=== PATIENT | male | born 1975 | race Caucasian/White ===

== ENCOUNTER → 2017-05-01 | Outpatient (CLI) | payer OTHER | END | disposition home or self-care (01) | LOC: C.LAB 23:07 | DX: Z02.83 Encounter for blood-alcohol and blood-drug test (principal) ==

== ENCOUNTER 2024-11-07 21:49 | Inpatient (IN) ==
--- NOTE | 2024-11-07 22:32 | Emergency Department Note ---
Impression & Plan Diabetic ketoacidosis, Leukocytosis, Acute hypotension, SUSANA (acute kidney injury), Acute hypokalemia, Elevated lactic acid level ED Provider Note HISTORY OF PRESENT ILLNESS: Patient is a 49-year-old male presenting with hyperglycemia. Patient reports that he had laboratory work done recently through his primary care provider and was called about 1 hour prior to arrival in the emergency department stating that his blood sugar was high and his sodium was low. He denies any history of diabetes. He states that he has been drinking quite heavily 4 days a week for the last few weeks. He states that he drinks about three fourths of a handle of vodka when he does drink. He states that he drank quite heavily this past weekend. He states that 3 days ago he had multiple episodes of vomiting and 2 days ago he had profuse diarrhea. He states he was feeling well yesterday and able to tolerate oral intake and was trying to stay hydrated. He denies any polyuria. Denies any fevers. He has a history of hypertension and was recently put on lisinopril. He denies any chest pain or shortness of breath. He reports that today he is felt lightheaded with standing. ROS: as above PHYSICAL EXAM: Constitutional: Patient appears in no acute distress. HENT: Head: Normocephalic and atraumatic. Eyes: EOMI, PERRL Mouth/Throat: Mucous membranes moist. Neck: Trachea midline. Neck supple. Cardiovascular: Tachycardic with regular rhythm. No murmurs, rubs or gallops. Intact distal pulses. Pulmonary/Chest: No respiratory distress. Breath sounds clear and equal bilaterally. No wheezes or rales. Abdominal: Abdomen soft, no tenderness, rebound or guarding. Musculoskeletal: No edema, tenderness or deformity noted. Skin: Warm and dry. No rash, erythema, pallor or cyanosis Psychiatric: Appropriate mood and affect for situation. Neurological: Alert and keenly responsive. CN II-XII grossly intact, moving all extremities equally and fully. MDM: - Vitals signs showed hypotension and tachycardia. - History obtained via patient. History as above. - Chronic conditions affecting care: Hypertension - Differential diagnoses include, but are not limited to: DKA; electrolyte abnormality; dysrhythmia; sepsis; UTI; pneumonia; viral syndrome - Order placed for continuous cardiac monitoring. At this time, monitor showed rate of 102 bpm with normal sinus rhythm, per my interpretation. - External medical records reviewed. Patient's lab work from earlier today was reviewed. He had a glucose of 343 and a sodium of 130. - EKG interpreted by myself showed normal sinus rhythm. Rate 97 bpm. QT prolonged at 384. No acute ischemic changes. - Laboratory workup interpreted by myself showed leukocytosis (WBC 13.26); normal PT/INR; hyponatremia (pseudohyponatremia when correcting for patient's hyperglycemia); hypokalemia (K 3.2); SUSANA (Cr 1.64); elevated anion gap (16); elevated total bilirubin (1.2); elevated AST (57); elevated CK (1573); normal troponin; normal procalcitonin; normal TSH; elevated alcohol (95.9); hyperglycemia (glucose 400); elevated lactic acid (4.8) - Ordered 30 mEq IV potassium as 10 mEq K riders for potassium replacement - Given 2L NS with improvement in hypotension. - CXR negative for pneumonia, per my interpretation - ABG obtained at 23:34 showed pH 7.394; pCO2 35.6 - Given patient's hyperglycemia and elevated anion gap, will treat with insulin drip. Insulin drip ordered. - Patient's hypotension and tachycardia likely secondary to his DKA. However, blood cultures were ordered and empiric 2 g IV Rocephin was also ordered. Patient given 2 L normal saline in the emergency department. His sepsis fluid volume calculation based on ideal body weight is 2018.10 mL. - Discussion was had with case worker about patient's case and need for admission - Hospitalist, Dr. Jacinto, consulted for admission - Patient admitted to [facility] service for further evaluation and management. I have personally spent 43 minutes of critical care time in the direct management of this patient. This includes bedside care, interpretation of diagnostic studies, and testing, discussion with consultants, patient, and family members, and other required patient management activities. This 43 minutes is in excess of all separately billable procedures. ASSESSMENT AND PLAN: Diagnosis: diabetic ketoacidosis; leukocytosis; acute hypotension; acute hypokalemia; SUSANA; elevated lactic acid Plan: admit Past Med/Surg History Problem List (Updated 11/07/24 @ 23:52 by Marizol Brown MD) Elevated lactic acid level (Acute) Acute hypokalemia (Acute) SUSANA (acute kidney injury) (Acute) Acute hypotension (Acute) Leukocytosis (Acute) Diabetic ketoacidosis (Acute) Social History Smoking Status: Never smoker Preferred Language: Uzbek Feels Safe at Home: Yes Allergies Allergies Allergy/AdvReac Type Severity Reaction Status Date / Time No Known Allergies Allergy Unverified 11/07/24 22:30 Home Meds Home Medications Medication Instructions Recorded Confirmed citalopram 20 mg tablet 20 mg PO QAM 11/07/24 11/07/24 Results & Data (ED) Vital Signs Vital Signs - 24 hr 11/07/24 21:52 11/07/24 22:08 11/07/24 22:18 Temperature 36.4 C L Temperature Source Temporal Artery Scan Pulse Rate 109 H 108 H Pulse Rate [Apical] Respiratory Rate 18 Respiratory Effort / Characteristics Non-Labored Spontaneous Respiratory Depth Normal Respiratory Pattern Regular Blood Pressure 95/50 L Blood Pressure [Right Arm] Blood Pressure Mean 65 Blood Pressure Mean [Right Arm] Blood Pressure Position Lying Pulse Oximetry 98 100 Oxygen Delivery Method Room Air Room Air Sepsis Recent Fever Within 48 Hours No Sepsis New/Unexplained Change in Mental Status No Sepsis Action Taken by Nursing No Action Required 11/07/24 23:58 Temperature Temperature Source Pulse Rate Pulse Rate [Apical] 97 H Respiratory Rate 16 Respiratory Effort / Characteristics Non-Labored Spontaneous Respiratory Depth Normal Respiratory Pattern Regular Blood Pressure Blood Pressure [Right Arm] 127/81 Blood Pressure Mean Blood Pressure Mean [Right Arm] 96 Blood Pressure Position Pulse Oximetry 99 Oxygen Delivery Method Room Air Sepsis Recent Fever Within 48 Hours Sepsis New/Unexplained Change in Mental Status Sepsis Action Taken by Nursing Laboratory Data 11/07/24 22:17 11/07/24 22:17 Lab Results 11/07/24 11/07/24 11/07/24 Range/Units 22:17 23:26 23:34 WBC 13.26 H (4.8-10.8) K/ul RBC 3.69 L (4.70-6.10) M/uL Hgb 11.2 L (14.0-18.0) g/dl POC Hgb 7.8 L (14.0-18.0) g/dl Hct 30.4 L (42.0-52.0) % POC Hct 23 L (42-52) % MCV 82.4 (80.0-100.0) fL MCH 30.4 (25.0-34.0) pg MCHC 36.8 H (32.0-36.0) g/dL RDW Std Deviation 34.5 L (36.4-46.3) fL RDW Coeff of Karla 11.6 (11.5-14.5) % Plt Count 204 (130-400) K/uL MPV 10.4 (9.4-12.4) fL Immature Gran % (Auto) 0.5 % Neut % (Auto) 83.0 % Lymph % (Auto) 10.4 % [place] % (Auto) 5.5 % Eos % (Auto) 0.4 % Baso % (Auto) 0.2 % Neut # (Auto) 11.02 H (1.40-6.50) K/uL Lymph # (Auto) 1.38 (1.20-3.40) K/uL [place] # (Auto) 0.73 H (0.11-0.59) K/uL Eos # (Auto) 0.05 (0.00-0.50) K/uL Baso # (Auto) 0.02 (0.00-0.20) K/uL Immature Gran # (Auto) 0.06 (0.01-0.20) K/uL PT 9.8 (9.0-12.0) Seconds INR 0.9 (0.9-1.1) Specimen Type Arterial POC pH 7.39 (7.35-7.45) POC pCO2 36 (35-46) mmHg POC pO2 81 (80-95) mmHg POC HCO3 22 (19-24) víctor/L POC Total CO2 23 L (24-31) mmol/L POC Base Excess -3.0 (-9-1.8) víctor/L POC ABG O2 Sat 96.0 H (90-95) % POC Sodium 128 L (135-144) mmol/L Sodium 127 L (136-145) mmol/L POC Potassium 3.0 L (3.3-5.0) mmol/L Potassium 3.2 L (3.5-5.1) mmol/L Chloride 84 L (98-107) mmol/L Carbon Dioxide 27 (21-32) mmol/L Anion Gap 16 H (3-11) BUN 42 H (6-23) mg/dl Creatinine 1.64 H D (0.6-1.4) mg/dl Est Cr Clr Drug Dosing 52.1 ml/min eGFR 51.60 BUN/Creatinine Ratio 25.6 H (10-20) Glucose 400 H* (70-99(Fasting)) mg/dl Lactate 4.8 H* (0.4-2.0) mmol/L Calcium 9.3 (8.6-10.3) mg/dl Phosphorus 2.6 (2.5-4.9) mg/dl Magnesium 2.2 (1.7-2.4) mg/dl Total Bilirubin 1.2 H (0.2-1.0) mg/dl AST 57 H (13-39) U/L ALT 45 (7-52) U/L Alkaline Phosphatase 87 (34-104) U/L Total Creatine Kinase 1573 H (30-223) U/L Troponin I High Sens 6.9 (0-20) pg/ml Total Protein 6.7 (6.0-8.3) gm/dl Albumin 4.1 (3.4-5.0) gm/dl Globulin 2.6 (2.5-4.0) gm/dl Albumin/Globulin Ratio 1.6 (0.9-2) Procalcitonin 0.45 (0-0.5) ng/ml TSH 4.077 (0.300-4.500) uIu/ml Ethyl Alcohol mg/dL 95.9 H (<10.0) mg/dl Administered Medications Sodium Chloride (Nss) 2,000 mls @ 999 mls/hr IV .Q2H1M ONE Stop: 11/08/24 00:26 Last Admin: 11/07/24 22:38 Dose: 999 mls/hr Documented By: SILVIANO Discharge Plan Visit Data Chief Complaint: Abnormal Labs/Diagnostic Testing Stated Complaint: abn ED Provider: Marizol Brown Discharge Problem: Diabetic ketoacidosis, Leukocytosis, Acute hypotension, SUSANA (acute kidney injury), Acute hypokalemia, Elevated lactic acid level Forms Stand Alone Forms: My [facility] [employer] Public Safety Prescriptions Prescriptions: No Action citalopram 20 mg tablet 20 mg PO QAM Referrals Referrals: PCP,NO [Physician] -
[2024-11-07 22:36] LABS: Basophils # (auto) 0.02 K/uL (0.00-0.20); Basophils % (auto) 0.2 %; Eosinophils # (auto) 0.05 K/uL (0.00-0.50); Eosinophils % (auto) 0.4 %; Hematocrit (blood only) 30.4 % (42.0-52.0); Hemoglobin 11.2 g/dl (14.0-18.0); Immature Granulocytes # (auto) 0.06 K/uL (0.01-0.20); Immature Granulocytes % (auto) 0.5 %; Lymphocytes # (auto) 1.38 K/uL (1.20-3.40); Lymphocytes % (auto) 10.4 %; Mean Corpuscular Hemoglobin 30.4 pg (25.0-34.0); Mean Corpuscular Hgb Conc 36.8 g/dL (32.0-36.0); Mean Corpuscular Volume 82.4 fL (80.0-100.0); Mean Platelet Volume 10.4 fL (9.4-12.4); Monocytes # (auto) 0.73 K/uL (0.11-0.59); Monocytes % (auto) 5.5 %; Neutrophils # (auto) 11.02 K/uL (1.40-6.50); Platelet Count 204 K/uL (130-400); RDW Coefficient of Variation 11.6 % (11.5-14.5); RDW Standard Deviation 34.5 fL (36.4-46.3); Red Blood Count 3.69 M/uL (4.70-6.10); White Blood Count 13.26 K/ul (4.8-10.8)
[2024-11-07] MEDS: SODIUM CHLORIDE 0.9% 2,000 ML IV ONE (22:38)
[2024-11-07 23:01] LABS: INR 0.9 (0.9-1.1); Prothrombin Time 9.8 Seconds (9.0-12.0)
[2024-11-07 23:03] LABS: Albumin Globulin Ratio 1.6 (0.9-2); Albumin Level 4.1 gm/dl (3.4-5.0); BUN Creatinine Ratio 25.6 (10-20); Bilirubin,Total 1.2 mg/dl (0.2-1.0); Calcium 9.3 mg/dl (8.6-10.3); Creatinine Clr Calc Pharmacy 52.1 ml/min; Globulin 2.6 gm/dl (2.5-4.0); Magnesium 2.2 mg/dl (1.7-2.4); Phosphorus 2.6 mg/dl (2.5-4.9); Potassium 3.2 mmol/L (3.5-5.1); Total Protein 6.7 gm/dl (6.0-8.3); Troponin I High Sensitivity 6.9 pg/ml (0-20)
[2024-11-07 23:08] LABS: Thyroid Stimulating Hormone 4.077 uIu/ml (0.300-4.500)
[2024-11-07] MEDS ORDERED: CARBOHYDRATES FOR HYPOGLYCEMIA PO PRN (23:37)
[2024-11-07] MEDS ORDERED: GLUCAGON FOR INJ 1 MG VIAL SQ PRN (23:37)
[2024-11-07] MEDS ORDERED: DEXTROSE 50% 50 ML SYRINGE IV PRN (23:37)
[2024-11-07] MEDS ORDERED: GLUCOSE 40% GEL 15 GM TUBE PO PRN (23:37)
[2024-11-07] MEDS ORDERED: GLUCOSE 10 TAB/TUBE PO PRN (23:37)
[2024-11-07] MEDS ORDERED: INSULIN REGULAR 250 UNITS in SODIUM CHLORIDE 0.9% 247.5 ML IV SCH (23:45)
[2024-11-07 23:47] LABS: iSTAT Arterial Blood Gas HCO3 22 meg/L (19-24); iSTAT Arterial Blood Gas pCO2 36 mmHg (35-46); iSTAT Arterial Blood Gas pH 7.39 (7.35-7.45); iSTAT Arterial Blood Gas pO2 81 mmHg (80-95); iSTAT Carbon Dioxide 23 mmol/L (24-31); iSTAT Hematocrit 23 % (42-52); iSTAT Hemoglobin 7.8 g/dl (14.0-18.0); iSTAT Sample Type Arterial; iSTAT Sodium 128 mmol/L (135-144)
[2024-11-08] MEDS: cefTRIAXone SODIUM 2,000 MG/50 ML BAG IV STA (00:04)
[2024-11-08 00:07] LABS: Adenovirus PCR Not Detected (NotDetected); Bordetella parapertussis PCR Not Detected (NotDetected); Bordetella pertussis PCR Not Detected (NotDetected); Chlamydia pneumoniae PCR Not Detected (NotDetected); Coronavirus 229E PCR Not Detected (NotDetected); Coronavirus CoV-2 (COVID19)PCR Not Detected (NotDetected); Coronavirus HKU1 PCR Not Detected (NotDetected); Coronavirus NL63 PCR Not Detected (NotDetected); Coronavirus OC43PCR Not Detected (NotDetected); Human Metapneumovirus PCR Not Detected (NotDetected); Influenza A PCR Not Detected (NotDetected); Influenza B PCR Not Detected (NotDetected); Mycoplasma pneumoniae PCR Not Detected (NotDetected); Parainfluenza Virus 1 PCR Not Detected (NotDetected); Parainfluenza Virus 2 PCR Not Detected (NotDetected); Parainfluenza Virus 3 PCR Not Detected (NotDetected); Parainfluenza Virus 4 PCR Not Detected (NotDetected); Respiratory Syncytial VirusPCR Not Detected (NotDetected); Rhinovirus/Enterovirus PCR Not Detected (NotDetected)
[2024-11-08 00:11] LABS: Appearance Urine Clear (Clear); Bacteria Urine Automated None Seen (None Seen); Bilirubin Urine Negative (Negative); Blood Urine Trace (Negative); Cast Urine Automated 0-2 /lpf (0-2); Color Urine Yellow; Epithelial Cell Urine Auto 0-2 /hpf (0-2); Glucose Urine UA 3+ (Negative); Ketones Urine Trace (Negative); Leukocyte Esterase Urine Negative (Negative); Nitrite Urine Negative (Negative); Protein Urine Negative (Negative); RBC Urine Automated 0-2 /hpf (0-2); Specific Gravity Urine 1.015 (1.000-1.030); Urobilinogen Urine Negative (Negative); WBC Urine Automated 0-5 /hpf (0-5); pH Urine 5.5 (4.5-7.5)
--- NOTE | 2024-11-08 00:25 | History & Physical Report ---
"Date of Service November 08, 2024 Assessment & Plan (1) Diabetic ketoacidosis: (2) SUSANA (acute kidney injury): (3) HTN (hypertension): (4) Paresthesia of left leg: (5) Alcohol use disorder: (6) Anxiety: (7) Depression: Plan This is a 49 y/o M w/ PMHx of HTN, alcohol use disorder, and Anxiety/Depression who was admitted for management ot DKA. DKA | New diagnosis of DM - Patient w/ weakness, N/V and loss of appetite since Tuesday (11/04/24), but de nies polyuria, chest pain, SOB, fevers/chills, urinary sxs, or any other sxs - No known dx of DM and no family history of DM - Labs suggestive of DKA bsg 343 in the morning and 400 at time of admission pseudohyponatremia of 127 w/ corrected of 132 Hypokalemia of 3.2 Lactate of 4.8 ABG w/ ph of 7.39 Hgb A1c pending - 2L NSS given in the ED - Ordered 1/2 NSS/ 20 mEq K+; can add D5 once bsg reaches 200-250 - Insulin regular gtt running Pharmacy glycemic consult placed Can add short acting once bsg stabilizes and no longer acidotic/AG closes, and later on add long acting; can stop insulin gtt 1-2 hours after bsg stabilized with SubQ insulin - NPO for now - BMP, Mg, Phos, VBG Q4h - Bsg checks Q1h - Leukpcytosis and hypotension can be attributed to current DKA, but will continue Ceftriaxone for now - prosthodontist/educator consulted as well - Admit to PCU/Tele Left LE paresthesias - Patient with few weeks of left LE tingling w/o associated weakness; non- radiating and no swelling - Could be related to heavy alcohol use, DVT, vitamin deficiencies; newly found DM could certainly also be playing a role - LLE US ordered to r/o DVT - Vitamin B12 and folate levels pending Alcohol abuse disorder | Risk for withdrawal - Patient w/ hx of heavy alcohol use and possible withdrawal sxs at home - AWSS protocol - Suspect anxiety/depression may be a contributing factor driving his use of alcohol HTN - Hold Lisinopril Anxiety/Depression - Continue Celexa Dispo: PCU/Tele VTE ppx: SCD Code Status: FULL CODE History of Present Illness Chief Complaint: DKA Primary Care Provider: Shu Hope DO Patient is a 49-year-old male with past medical history of hypertension, alcohol use disorder, and anxiety/depression who was sent to ED by PCP office due to abnormal lab findings. Prior to labs being done, patient states that since Tuesday (11/04/2024), he has been experiencing decrease in appetite as well as nausea and vomiting plus some associated weakness. The day after symptom onset, patient decreased his p.o. intake and just maintained hydration with water and Gatorade nearing a total of 60 to 80 ounces per day. Today he was able to tolerate 2 small meals. No one else at home with similar symptoms. Patient denies having any other associated symptoms such as chest pain, shortness of breath, urinary symptoms, abdominal pain, fever/chills, or any other systemic symptom. This has never happened before. Patient does state that from Tuesday to Tuesday (11/02/2024 -11/03/2024), he had episodes of heavy drinking and states that he was consuming a full bottle of vodka daily. On further questioning, his family member who is at the bedside states that he can consume 1 full bottle of vodka daily anywhere between 3-4 times a week, and believes he may have had experienced symptoms of withdrawal in the past since he does sometimes get shaky and agitated when he does not consume alcoholic beverages for a long time. ED Course: Given 2 L of normal saline IV, regular insulin infusion started, given ceftriaxone 2 g x 1 Labs/Imaging: CBC with leukocytosis of 13.26 with neutrophil predominance, hemoglobin of 11.2, and platelets of 204. PT/INR within normal limits. ABG with pH of 7.39, CO2 of 36, O2 of 81, and bicarb of 22. CMP showing pseudohyponatremia of 127 which corrects to 132 accounting for current hyperglycemia, hypokalemia of 3.2, hypochloremia of 84, bicarb of 27, 10, creatinine 1.64, blood sugar of 400. Lactate of 4.8. LFTs with mild elevation in AST, Otherwise unremarkable. Total CK of 1573. Troponin of 6.9. TSH of 4.077. U/A with glucosuria of 3+ but otherwise unremarkable. Blood cultures pending. Alcohol level of 95.9. Biofire negative. CXR unremarkable. Medical History: [Reviewed] Medications: [Reviewed] Surgical History: [Reviewed] Family history: [Reviewed] Allergies: [Reviewed] Social History: [Reviewed] Code Status: FULL Allergies Allergy/AdvReac Type Severity Reaction Status Date / Time No Known Allergies Allergy Unverified 11/07/24 22:30 Home Medications Medication Instructions Recorded Confirmed Type citalopram 20 mg tablet 20 mg PO QAM 11/07/24 11/07/24 History cyanocobalamin (vitamin B-12) 1,000 mcg PO DAILY #30 tabs 11/08/24 Rx 1,000 mcg tablet Past Med/Surg History Problem List (Updated 11/08/24 @ 00:34 by Yulisa Andrews MD) Depression Anxiety Alcohol use disorder Paresthesia of left leg HTN (hypertension) Elevated lactic acid level (Acute) Acute hypokalemia (Acute) SUSANA (acute kidney injury) (Acute) Acute hypotension (Acute) Leukocytosis (Acute) Diabetic ketoacidosis (Acute) Social History (Updated 11/08/24 @ 00:57 by Yulisa Andrews MD) Smoking Status: Never smoker Do You Dip or Chew Tobacco: No; Hx Alcohol Use: Yes Alcohol type: hard liquor Alcohol Intake Frequency: 2-3 x/Week Alcohol Intake Frequency Comment: 1 bottle of vodka Hx Substance Use: No Preferred Language: Slovak Communication Ability: Effective Opthalmic Tech Required: No Beliefs That Will Affect Care: None Current Living Situation: Significant Other Other Information That Helps Us Care for You: No Feels Safe at Home: Yes Safety Concerns: Feels Safe At This Time Assistive Devices: None Review of Systems Review of Systems: As per HPI Physical Exam Physical Exam: GENERAL: Awake alert and oriented in all spheres, afebrile, calm and cooperative, no acute distress HEAD: Atraumatic, normocephalic EYES: PERRL, EOM intact THROAT: Normal to visual inspection CHEST: Symmetric chest expansions with respiration CARDIO: Regular rate and rhythm, no rubs murmurs or gallops appreciated PULMONARY: Clear to auscultation bilaterally, normal respiratory effort, no respiratory distress GI: Soft, nondistended, nontender EXTREMITIES: No swelling or calf tenderness in bilateral lower extremities, no skin lesions or discolorations SKIN: No rashes NEURO: Normal speech, fully awake and oriented, no focal deficits appreciated Results & Data Results & Data Vital Signs (Past 12 Hours) Vital Signs Temp Pulse Pulse Resp BP BP Pulse Ox 11/07/24 23:58 97 H 16 127/81 99 11/07/24 22:18 108 H 11/07/24 22:08 100 11/07/24 21:52 36.4 C L 109 H 18 95/50 L 98 O2 Del Method 11/07/24 23:58 Room Air 11/07/24 22:18 11/07/24 22:08 Room Air 11/07/24 21:52 Room Air Supervising Physician Co-Signing Physician Notes Attending addendum: I have physically seen this patient, have supervised the medical residents activities, and agree with the H&P unless as otherwise noted. Assessment and Plan: The patient is a 49-year-old male who was called by outpatient office to notify him that his blood sugar was elevated from the morning laboratories, and his sodium was low, and he should come to the ED for assessment. #DKA/new diagnosis of diabetes mellitus- Glucose 400 on admission labs, and anion gap 16 Patient started on insulin drip per protocol by the ED and will be continued as per protocol Check hemoglobin A1c Lactate elevated 4.8, and follow serially Patient did receive a total of 2 L normal saline from the ED, and will be shifted to normal saline with potassium as per protocol Diabetic education as ordered Electrolyte disturbances, sodium 127, potassium 3.2 And will be replaced per protocol Acute kidney injury/rhabdomyolysis- Creatinine kinase 1573, AST 57, creatinine 1.64 Aggressive IV fluid rehydration as noted, and correction of hyperglycemia Follow laboratory serially per protocol Alcohol abuse- Patient will be placed on [facility] protocol Alcohol level 95.9 on admission Likely contributing factor to DKA status Hypertension- Hold lisinopril due to SUSANA Resident Activity Tracking Resident Involvement: Resident Care Provided Care Provided: Adult Hospital Medicine"
[2024-11-08] MEDS: INSULIN REGULAR 250 UNITS in SODIUM CHLORIDE 0.9% 247.5 ML IV SCH ×2 (00:42→04:04)
[2024-11-08] MEDS: POTASSIUM CHLORIDE / WTR 10 MEQ/100 ML PLCT IV SCH (00:44)
--- NOTE | 2024-11-08 00:45 | XRay Report ---
Exam(s): XR CXR 1 VIEW EXAM: XR Chest, 1 View CLINICAL HISTORY: Reason for exam: weakness. TECHNIQUE: Frontal view of the chest. COMPARISON: No relevant prior studies available. FINDINGS: Lungs: Unremarkable. No consolidation. Pleural space: Unremarkable. No pneumothorax. Heart: Unremarkable. No cardiomegaly. Mediastinum: Unremarkable. Normal mediastinal contour. Bones/joints: Unremarkable. No acute fracture. IMPRESSION: Normal chest x-ray. Electronically signed by: Aubrey Lee MD 11/08/24 00:44 AM
[2024-11-08] MEDS: DKA GOAL RANGE 150-250 mg/dl ONE (00:54)
[2024-11-08] MEDS: STAT IV Infusion **Titration per Protocol STA (00:54)
[2024-11-08] MEDS ORDERED: ACETAMINOPHEN 325 MG TAB PO PRN (03:06)
[2024-11-08] MEDS ORDERED: STAT IV Infusion **Titration per Protocol STA (03:06)
[2024-11-08] MEDS ORDERED: INSULIN REGULAR 250 UNITS in SODIUM CHLORIDE 0.9% 247.5 ML IV SCH ×2 (03:06→03:45)
[2024-11-08] MEDS ORDERED: Ativan IV Alcohol Withdrawal--Active Protocol IV PRN (03:06)
[2024-11-08] MEDS ORDERED: PHARMACY GLYCEMIC MGMT CONSULT PRN (03:06)
[2024-11-08] MEDS ORDERED: ONDANSETRON INJ 2 MG/ML 2 ML VIAL IV PRN (03:06)
[2024-11-08] MEDS ORDERED: LORazepam 2 MG/1 ML VIAL IV PRN ×3 (03:06)
[2024-11-08] MEDS ORDERED: POLYETHYLENE (MIRALAX) 17 GM PACK PO PRN (03:06)
[2024-11-08 03:09] LABS: BUN Creatinine Ratio 30.2 (10-20); Calcium 8.3 mg/dl (8.6-10.3); Creatinine Clr Calc Pharmacy 73.6 ml/min; Magnesium 1.8 mg/dl (1.7-2.4); Phosphorus 1.8 mg/dl (2.5-4.9); Potassium 3.1 mmol/L (3.5-5.1)
[2024-11-08] MEDS: PENDING D5 1/2NS+20mEq KCL IVF SCH (03:31)
[2024-11-08] MEDS: D5W AND 1/2NSS + 20MEQ KCL 20 MEQ/1,000 ML BAG IV SCH (03:49)
--- NOTE | 2024-11-08 05:42 | Ultrasound Report ---
EXAM: US venous doppler LE LT CLINICAL HISTORY: HX: LLE PARESTHESIAS. TECHNIQUE: Ultrasound examination of left lower extremity veins was performed in real time and duplex. One or more of the following were performed- spectral analysis, resistive index, waveform analysis, and pulsed Doppler. COMPARISON: None. FINDINGS: Normal phasic, non-pulsatile and spontaneous flow is noted in left GSV, common femoral, superficial femoral, popliteal, anterior tibial, posterior tibial and peroneal veins. Visualized veins of left lower extremity demonstrate normal compressibility. No sonographic evidence of acute deep vein thrombosis (DVT) is detected in the visualized veins of lower extremity. Compression and Augmentation: All evaluated veins compress fully with applied transducer pressure. Augmentation of venous flow is noted with distal compression. Additional Findings: No evidence of intraluminal thrombus. IMPRESSION: No sonographic evidence of acute DVT detected at the time of examination. Disclaimer: DVT could be missed early in the disease when clot burden is minimal. For patients with moderate and high pretest probability of DVT and negative ultrasound, the [employer] clinical guidelines recommend testing with a D-dimer assay or repeat ultrasound in 5-7 days. If symptoms worsen, the Society of radiologists in ultrasound recommends repeating ultrasound even earlier. Electronically signed by Rebecca Colorado 11-08-2024 05:41 AM
[2024-11-08 07:10] LABS: Estimated Average Glucose 203 mg/dl; Hemoglobin A1C 8.7 % (4.5-5.6)
[2024-11-08 07:41] LABS: Creatinine Clr Calc Pharmacy 93.8 ml/min
--- NOTE | 2024-11-08 08:00 | Hospitalist Progress Note ---
Date of Service November 08, 2024 Assessment & Plan (1) Diabetic ketoacidosis: (2) SUSANA (acute kidney injury): (3) HTN (hypertension): (4) Paresthesia of left leg: (5) Alcohol use disorder: (6) Anxiety: (7) Depression: Plan This is a 49 y/o M w/ PMHx of HTN, alcohol use disorder, and Anxiety/Depression who was admitted for management ot DKA. #DKA *New diagnosis of DM *Dehydration vs True DKA - No known dx of DM and no family history of DM - Sickness started following heavy alcohol x 3 days. - Labs: BSG 343- 400 until admission--- Improved this AM 142 Electrolytes recent Na/K: 132/3.1; KCL 40 MeQ PO this AM, will review labs sparkle. Lactate corrected VBG w/ ph of 7.64 Hgb A1c :8.4 - Insulin Lantus 10 units BID started - Plan to switch to Metformin 1000 BID tonight. - personal development educator consult awaited - Tele: NSR #Alcohol abuse disorder *Risk for withdrawal - Last drink : yesterday - Patient w/ hx of heavy alcohol use and possible withdrawal sxs at home - AWSS protocol; mild so far. - Contributing factor: anxiety/depression - Counselled at bedside to our best for abstinence, seems understanding. Will follow again tomorrow. #HTN BP on range on admission - Will consider continue Lisinopril on DC. Anxiety/Depression Extensive counselling done on bedside today. - Rec counselling session in future if feasible. His present situation less likely favors sessions - Continue Celexa #Left LE paresthesias - LLE US ordered to r/o DVT - Vitamin B12 and folate levels: Normal range VTE ppx: SCD Code Status: FULL CODE Admission and Anticipated Discharge Date Admission Date: November 08, 2024 Supervising Physician Co-Signing Physician Notes I personally examined the patient and verified all burciaga points of history and exam, discussed case, and agree with decision making with Dr Conde Feeling much better overall. Not really showing any significant alcohol withdrawal. Appreciative of care. Drinks out of depression. Vitals noted, in general he is awake and alert pleasant no distress. HEENT normocephalic atraumatic mucous membranes moist. Breathing unlabored no accessory muscle use good effort. Skin without rashes pallor or icterus. Not tremulous. Neuro without focal deficits. Dehydrationmultifactorial between hyperglycemia and alcohol abuseimproved. Hyperglycemic dehydrationto be clear, without acidosis, and because his overall picture is much more consistent with type 2 diabetesI do not believe he had DKArather a degree of hyperglycemic dehydration (probably not even truly approaching HHNK given that a lot of the dehydration was likely also alcohol related)dehydration improved. Sugars better. Given his economic circumstances as well as the fact that he is quite likely a type II diabetic, while we have attained euglycemia with insulin, tonight we will transition over to metformin given that this will be much more feasible for him in the outpatient world. [facility] early part of tomorrow to ensure euglycemia, or at least improved glucose control from his outpatient numbers prior to discharge. Extensive discussion on lifestyle change being a major factor in improvement of type 2 diabetes/insulin resistance as well. Alcohol abusethus far no significant withdrawal. Drinks out of depression. Discussed other coping strategies, discussed overall management of depression. He expressed good understanding. Otherwise as above Subjective This AM Mr. Amaya feel better than yesterday. No nausea, vomiting, better in weakness. Vitals stable after admission. No tremors, palpitation, CP, SOB. Endorses no h/o high blood sugar in past. Now established in [facility], was seeing provider at [facility] until a year back and he was never aware of high blood sugar before. No family history of DM. He mentioned he started drinking heavy since a year ago, he felt more depressed and anxious after he lost his parents and other stuffs on life. Last drink was yesterday afternoon after he got home from [facility]. No tremor, nausea, vomiting after admission. Talked about quitting alcohol and lifestyle modification, sounds like he is willing to try. Review of Systems Review of Systems: As per HPI Physical Exam Physical Exam: Constitutional: Well appearing, No acute distress. HEENT: Atraumatic, Normocephalic, No conjunctival injection CVS: S1 S2 no murmur, Regular Rhythm, no LE edema Respiratory: BL equal air entry with NVBS. No rhonchi, wheezes, or crackles. No increased work of breathing GI: Soft, Nondistended, Nontender, Normal Bowel sounds + MSK: No tremors, No gross deformities noted Skin: Warm, Dry, No rashes Neuro: Alert, Oriented to TPP, No Focal deficit Psych: Mood and Affect congruent, Cooperative on exam Results & Data Results & Data Vital Signs (Past 12 Hours) Vital Signs Temp Pulse Pulse Resp BP BP Pulse Ox 11/08/24 03:51 91 H 14 11/08/24 03:42 93 H 19 11/08/24 03:36 93 H 17 99 11/08/24 03:21 101 H 16 11/08/24 03:12 99 H 18 99 11/08/24 03:06 107 H 20 11/08/24 03:04 141/78 H 11/08/24 03:04 141/78 H 11/08/24 03:04 141/78 H 11/08/24 03:00 90 11/08/24 02:51 37.1 C 94 H 15 98 11/08/24 02:48 96 H 16 120/68 99 11/08/24 02:41 92 H 14 115/70 98 11/08/24 02:34 93 H 11/08/24 01:00 37.6 C H 103 H 18 88/63 L 98 11/07/24 23:58 97 H 16 127/81 99 11/07/24 22:18 108 H 11/07/24 22:08 100 11/07/24 21:52 36.4 C L 109 H 18 95/50 L 98 O2 Del Method 11/08/24 03:51 11/08/24 03:42 11/08/24 03:36 Room Air 11/08/24 03:21 11/08/24 03:12 Room Air 11/08/24 03:06 11/08/24 03:04 11/08/24 03:04 11/08/24 03:04 11/08/24 03:00 11/08/24 02:51 11/08/24 02:48 Room Air 11/08/24 02:41 Room Air 11/08/24 02:34 11/08/24 01:00 11/07/24 23:58 Room Air 11/07/24 22:18 11/07/24 22:08 Room Air 11/07/24 21:52 Room Air Resident Activity Tracking Resident Involvement: Resident Care Provided Care Provided: Adult Hospital Medicine
[2024-11-08] MEDS: INSULIN ASPART PER UNIT CHARGE SC SCH ×3 (08:40→11:50)
[2024-11-08] MEDS: CITALOPRAM 20 MG TAB PO SCH (08:49)
[2024-11-08] MEDS: CYANOCOBALAMIN (B-12) 500 MCG TABLET PO SCH (08:49)
[2024-11-08] MEDS: THIAMINE HCL 100 MG TAB PO SCH (08:49)
[2024-11-08] MEDS: FOLIC ACID 1 MG in SYRINGE 9.8 ML IV SCH (08:54)
[2024-11-08] MEDS: POTASSIUM CHLORIDE CRTAB 20 MEQ TABCR PO STA (09:56)
[2024-11-08] MEDS: LANTUS PER UNIT CHARGE SQ SCH (09:56)
[2024-11-08 11:35] LABS: Calcium 8.2 mg/dl (8.6-10.3); Magnesium 1.9 mg/dl (1.7-2.4); Potassium 3.1 mmol/L (3.5-5.1)
[2024-11-08] MEDS: metFORMIN HCL 500 MG TAB PO SCH (18:04)
[2024-11-09 04:13] VITALS: O2SAT 98
--- NOTE | 2024-11-09 04:59 | Billing Data ---
Date of Service November 09, 2024 Coding Level of Care Code 15042 INT INP/OBS CARE
[2024-11-09 08:26] LABS: BUN Creatinine Ratio 23.8 (10-20); Creatinine Clr Calc Pharmacy 101.6 ml/min; Potassium 3.4 mmol/L (3.5-5.1)
[2024-11-09 08:34] LABS: Hematocrit (blood only) 27.8 % (42.0-52.0); Hemoglobin 10.2 g/dl (14.0-18.0); Mean Corpuscular Hgb Conc 36.7 g/dL (32.0-36.0); Mean Corpuscular Volume 84.5 fL (80.0-100.0); Mean Platelet Volume 10.5 fL (9.4-12.4); Platelet Count 84 K/uL (130-400); Platelet Estimate Decreased (Normal); RDW Coefficient of Variation 11.6 % (11.5-14.5); Red Blood Count 3.29 M/uL (4.70-6.10); White Blood Count 5.01 K/ul (4.8-10.8)
--- NOTE | 2024-11-09 09:08 | Hospitalist Progress Note ---
Date of Service November 09, 2024 Assessment & Plan (1) Diabetic ketoacidosis: (2) SUSANA (acute kidney injury): (3) HTN (hypertension): (4) Paresthesia of left leg: (5) Alcohol use disorder: (6) Anxiety: (7) Depression: Plan This is a 49 y/o M w/ PMHx of HTN, alcohol use disorder, and Anxiety/Depression who was admitted for management ot DKA. #DKA *New diagnosis of DM *Dehydration vs True DKA - No known dx of DM and no family history of DM - Sickness started following heavy alcohol x 3 days. - Labs: BSG 343- 400 until admission--- Improved this AM 142 Electrolytes recent Na/K: 132/3.1; KCL 40 MeQ PO this AM, will review labs sparkle. Lactate corrected VBG w/ ph of 7.64 Hgb A1c :8.4 - Insulin Lantus 10 units BID started - Plan to switch to Metformin 1000 BID tonight. - senior health educator consult awaited - Tele: NSR #Alcohol abuse disorder *Risk for withdrawal - Last drink : yesterday - Patient w/ hx of heavy alcohol use and possible withdrawal sxs at home - AWSS protocol; mild so far. - Contributing factor: anxiety/depression - Counselled at bedside to our best for abstinence, seems understanding. Will follow again tomorrow. #HTN BP on range on admission - Will consider continue Lisinopril on DC. Anxiety/Depression Extensive counselling done on bedside today. - Rec counselling session in future if feasible. His present situation less likely favors sessions - Continue Celexa #Left LE paresthesias - LLE US ordered to r/o DVT - Vitamin B12 and folate levels: Normal range VTE ppx: SCD Code Status: FULL CODE Admission and Anticipated Discharge Date Admission Date: November 08, 2024 Subjective This AM Mr. Amaya feel better than yesterday. No nausea, vomiting, better in weakness. Vitals stable after admission. No tremors, palpitation, CP, SOB. Endorses no h/o high blood sugar in past. Now established in [place], was seeing provider at [facility] until a year back and he was never aware of high blood sugar before. No family history of DM. He mentioned he started drinking heavy since a year ago, he felt more depressed and anxious after he lost his parents and other stuffs on life. Last drink was yesterday afternoon after he got home from [facility]. No tremor, nausea, vomiting after admission. Talked about quitting alcohol and lifestyle modification, sounds like he is willing to try. Review of Systems Review of Systems: As per HPI Physical Exam Physical Exam: Constitutional: Well appearing, No acute distress. HEENT: Atraumatic, Normocephalic, No conjunctival injection CVS: S1 S2 no murmur, Regular Rhythm, no LE edema Respiratory: BL equal air entry with NVBS. No rhonchi, wheezes, or crackles. No increased work of breathing GI: Soft, Nondistended, Nontender, Normal Bowel sounds + MSK: No tremors, No gross deformities noted Skin: Warm, Dry, No rashes Neuro: Alert, Oriented to TPP, No Focal deficit Psych: Mood and Affect congruent, Cooperative on exam Results & Data Results & Data Vital Signs (Past 12 Hours) Vital Signs Temp Pulse Pulse Resp BP BP Pulse Ox 11/09/24 07:17 84 11/09/24 07:11 36.6 C 92 H 18 166/108 H 98 11/09/24 03:06 11/09/24 02:30 37.1 C 91 H 18 143/86 H 97 11/08/24 22:49 92 H 11/08/24 22:35 37.1 C 90 20 155/94 H 100 Pulse Ox O2 Del Method O2 Del Method 11/09/24 07:17 11/09/24 07:11 Room Air 11/09/24 03:06 98 Room Air 11/09/24 02:30 Room Air 11/08/24 22:49 11/08/24 22:35 Room Air
[2024-11-09 10:41] VITALS: RESP 19; TEMP 98.4
[2024-11-09] MEDS: lisinopril 10 MG TAB PO SCH (12:15)
--- NOTE | 2024-11-09 15:06 | Discharge Summary ---
Date of Service November 09, 2024 Admission HPI Per Admitting Provider Patient is a 49-year-old male with past medical history of hypertension, alcohol use disorder, and anxiety/depression who was sent to ED by PCP office due to abnormal lab findings. Prior to labs being done, patient states that since Tuesday (11/04/2024), he has been experiencing decrease in appetite as well as nausea and vomiting plus some associated weakness. The day after symptom onset, patient decreased his p.o. intake and just maintained hydration with water and Gatorade nearing a total of 60 to 80 ounces per day. Today he was able to tolerate 2 small meals. No one else at home with similar symptoms. Patient denies having any other associated symptoms such as chest pain, shortness of breath, urinary symptoms, abdominal pain, fever/chills, or any other systemic symptom. This has never happened before. Patient does state that from Tuesday to Tuesday (11/02/2024 -11/03/2024), he had episodes of heavy drinking and states that he was consuming a full bottle of vodka daily. On further questioning, his family member who is at the bedside states that he can consume 1 full bottle of vodka daily anywhere between 3-4 times a week, and believes he may have had experienced symptoms of withdrawal in the past since he does sometimes get shaky and agitated when he does not consume alcoholic beverages for a long time. ED Course: Given 2 L of normal saline IV, regular insulin infusion started, given ceftriaxone 2 g x 1 Labs/Imaging: CBC with leukocytosis of 13.26 with neutrophil predominance, hemoglobin of 11.2, and platelets of 204. PT/INR within normal limits. ABG with pH of 7.39, CO2 of 36, O2 of 81, and bicarb of 22. CMP showing pseudohyponatremia of 127 which corrects to 132 accounting for current hyperglycemia, hypokalemia of 3.2, hypochloremia of 84, bicarb of 27, 10, creatinine 1.64, blood sugar of 400. Lactate of 4.8. LFTs with mild elevation in AST, Otherwise unremarkable. Total CK of 1573. Troponin of 6.9. TSH of 4.077. U/A with glucosuria of 3+ but otherwise unremarkable. Blood cultures pending. Alcohol level of 95.9. Biofire negative. CXR unremarkable. Medical History: [Reviewed] Medications: [Reviewed] Surgical History: [Reviewed] Family history: [Reviewed] Allergies: [Reviewed] Social History: [Reviewed] Code Status: FULL Admission Exam Per Admitting Provider GENERAL: Awake alert and oriented in all spheres, afebrile, calm and cooperative, no acute distress HEAD: Atraumatic, normocephalic EYES: PERRL, EOM intact THROAT: Normal to visual inspection CHEST: Symmetric chest expansions with respiration CARDIO: Regular rate and rhythm, no rubs murmurs or gallops appreciated PULMONARY: Clear to auscultation bilaterally, normal respiratory effort, no respiratory distress GI: Soft, nondistended, nontender EXTREMITIES: No swelling or calf tenderness in bilateral lower extremities, no skin lesions or discolorations SKIN: No rashes NEURO: Normal speech, fully awake and oriented, no focal deficits appreciated Principal Diagnosis Uncontrolled DM type II, newly diagnosed Dehydration, corrected. Alcohol dependance Discharge Exam Constitutional: Well appearing, No acute distress. HEENT: Atraumatic, Normocephalic, No conjunctival injection CVS: S1 S2 no murmur, Regular Rhythm, no LE edema Respiratory: BL equal air entry with NVBS. No rhonchi, wheezes, or crackles. No increased work of breathing GI: Soft, Nondistended, Nontender, Normal Bowel sounds + MSK: No tremors, No gross deformities noted Skin: Warm, Dry, No rashes Neuro: Alert, Oriented to TPP, No Focal deficit Psych: Mood and Affect congruent, Cooperative on exam Discharge Data Allergies Allergy/AdvReac Type Severity Reaction Status Date / Time No Known Allergies Allergy Unverified 11/07/24 22:30 Consultations 11/07/24 23:47 ED Decision to Admit Stat Ordered Studies 11/08/24 03:06 US venous doppler LE LT Routine Hospital Course (1) Diabetic ketoacidosis: (2) SUSANA (acute kidney injury): (3) HTN (hypertension): (4) Paresthesia of left leg: (5) Alcohol use disorder: (6) Anxiety: (7) Depression: Plan #New diagnosis of DM *Dehydration vs True DKA - No known dx of DM and no family history of DM. Hgb A1c :8.4 - Managed like DKA; blood sugars came down pretty fast - Plan to switch to Metformin 1000 BID on DC. F/U PCP next week, plan to repear FBS/PP #Alcohol abuse disorder - Last drink :Tuesday. No AWSS at hospital Contributing factor: anxiety/depression Extensive counselling done; F/U #HTN BP on range on admission continue Lisinopril on DC. Anxiety/Depression Extensive counselling done on bedside. - Rec counselling session in future if feasible. His present situation less likely favors sessions - Continue Celexa Total Time Total Time Spent Total Time Spent (In Minutes): See attending's attestation. Discharge Plan Discharge Items Patient Disposition: Home - Self-Care Reason For Visit: HYPERGLYCEMIA Discharge Diagnosis: New Diagnosed Diabetes Mellitus Alcohol dependance Activity: Per Instructions section Non-emergency contact: Primary Care Provider Call non-emergency contact if: your symptoms worsen Follow-up/Referrals: Shu Hope, [Primary Care Provider] - Diet: Carb Consistent or DM2 Addtl Attending Provider Instructions: You were admitted to the hospital for Uncontrolled Newly diagnosed Diabetes and Alcohol Dependance. Your presentation was questionable for one of the severe complications of DM i.e.Diabetic ketoacidosis, the main management of which if intravenous fluids and insulin. Hence you were treated with same. You improved very well and we were able to change to oral medication very soon. A discharge summary will be sent to your primary care physician to ensure continuity of care. We have talked to your provider at [facility] about your new diagnosis. Please bring this discharge summary with you to your next office appointment so that your provider can review it at that time. Medications: Your medication list has been reviewed and reconciled upon discharge to ensure accuracy and continuity of care. An updated list of all your medications is included with your hospital discharge paperwork. Please review this list closely and make note of any changes to your medications. 1. Metformin 1000 mg BID has been sent. You are supposed to take metformin 1000 mg with Food twice daily. 2. Thiamine and folic acid has also been added. Follow prescription order. Follow up appointments: - Make a follow up appointment with your PCP within the next week. It is very important that you follow up with them shortly after discharge from the hospital. - Keep all of your follow up appointments as already scheduled. If you cannot make an appointment, notify your provider. CONTACT YOUR PRIMARY CARE PROVIDER if you experience any of the following: - Difficulty following your treatment plan - Difficulty taking any of your medications CALL 911 OR GO TO THE EMERGENCY DEPARTMENT if you experience any of the following: - Sudden, severe abdominal pain or nausea/vomiting - Severe chest pain or chest pain that radiates to your jaw or arm - Sudden, severe shortness of breath or difficulty breathing Pending Studies at Discharge: No Stand-Alone Forms: [facility], Smoking Cessation Medications and DC Order Prescriptions: New metformin 1,000 mg tablet 1,000 mg PO BID 45 Days Qty: 90 0RF thiamine HCl (vitamin B1) 100 mg tablet 100 mg PO DAILY 30 Days Qty: 30 0RF lisinopril 10 mg tablet 10 mg PO DAILY 30 Days Qty: 30 0RF Continued citalopram 20 mg tablet 20 mg PO QAM Discharge Orders: Discharge Order (Routine); Ordered 11/09/24 Ordered By: Bere Conde Admission Data Admit Date/Time: 11/08/24 00:25 Attending Provider: Jose Rashid Admit Provider: Yulisa Andrews Primary Care Provider: Shu Hope Other Providers: Jamarcus Jacinto Other Interventions: Discharge Summary Assessment (RN) Last Done: 11/09/24 15:43 Supervising Physician Co-Signing Physician Notes I personally examined the patient and verified all burciaga points of history and exam, discussed case, and agree with decision making with Dr oCnde feeling better. Feels up to getting out of the hospital. No new complaints. Vitals noted, in general he is awake and alert pleasant no distress. HEENT normocephalic atraumatic mucous membranes moist. Breathing unlabored no accessory muscle use good effort. Skin without rashes pallor or icterus. Neuro without focal deficits. Dehydrationmultifactorial between hyperglycemia and alcohol abuseimproved. Hyperglycemic dehydrationto be clear, without acidosis, and because his overall picture is much more consistent with type 2 diabetesI do not believe he had DKArather a degree of hyperglycemic dehydration (probably not even truly approaching NK given that a lot of the dehydration was likely also alcohol related)dehydration improved. with type 2 diabetes, combined with a willingness to make lifestyle change, combined with socioeconomic circumstances that would make expensive or complicated medication regimens preclusivegave trial to metformin to 1000 mg twice daily starting last nightwe discussed that his sugars are not optimal, but they are reasonable. Homemetformin (CV I am aware of plananticipate they will get him set up with a glucometer, we did disc uss prescription at [facility] for $4 plan) postprandial glucoses to learn from his glycemic control. Alcohol abuse Fortunately, no significant withdrawal. Drinks out of depression. Discussed other coping strategies, discussed overall management of depression. He expressed good understanding.
[2024-11-09 15:44] VITALS: BP 155/94; PULSE 95
--- NOTE | 2024-11-09 17:39 | Billing Data ---
Date of Service November 09, 2024 Coding Level of Care Code 58764 IN/OBS DISCH 30 MIN/LESS
--- NOTE | 2024-11-09 17:43 | Communication Note ---
Date of Service: November 09, 2024 Rx's sent [facility], had d/w pt earlier jamison checking and appeared he was going to use [facility] and [facility]. called - his private voicemail - LM of where Rx was and to call back if he needed me to resend to [facility] instead. ACEi - will ask that [facility] check BMP ~1wk
--- NOTE | 2024-11-09 18:21 | Electrocardiogram Report ---
Test Reason : Blood Pressure : */* mmHG Vent. Rate : 97 BPM Atrial Rate : 97 BPM P-R Int : 170 ms QRS Dur : 86 ms QT Int : 376 ms P-R-T Axes : 49 -20 41 degrees QTcB Int : 478 ms Normal sinus rhythm Prolonged QT Abnormal ECG No previous ECGs available Confirmed by Julio Gaines ([id number]) on 11/09/2024 6:21:26 PM Referred By: Shu Hope Confirmed By: Julio Gaines
--- NOTE | 2024-11-13 05:23 | Coding Query ---
CODING QUERY To promote full compliance with coding requirements relating to patient care, provider participation is requested in all cases of windows mobile developer uncertainty. Please assist us with the question(s) below: Coding Question(s): The following documentation is present in the discharge summary, "Hyperglycemic dehydration to be clear, without acidosis, and because his overall picture is much more consistent with type 2 diabetesI do not believe he had DKA rather a degree of hyperglycemic dehydration (probably not even truly approaching HHNK given that a lot of the dehydration was likely also alcohol related)dehydration improved. Can you please clarify the status of DKA by placing an x in the appropriate set of parenthesis? DKA, POA ( ) DKA ruled out (x ) Other, please specify . Physician's Response(s): sorry if i confused things! added the above statement to try to clarify what was going on, thanks!! Thank you Charla Castle Principal Diagnosis: "that condition established after study, to be chiefly responsible for occasioning the admission of the patient to the hospital for care." Co-Existing Principal Diagnosis: "when two or more diagnoses equally meet the criteria for principal diagnosis as determined by the circumstances of admission, diagnostic work up, and/or therapy provided, and the Alphabetic Index, Tabular List, or another coding guideline does not provide sequencing direction, any one of the diagnoses may be sequenced first." "When the physician has documented what appears to be a current diagnosis in the body of the record, but has not included the diagnosis in the final diagnostic statement, the physician should be asked whether the diagnosis should be added." (Source Coding [facility] 2 QTR90. p3-4) CINTIA
== END 2024-11-09 16:06 | disposition home or self-care (01) | DRG 638 ==
LOC: ED 21:49 → 1E 11-08 00:25 → SUATTDRO 11-08 00:25 → 1E 11-08 02:48 → 2S 11-08 17:32